=== PATIENT | male | born 1955 | race Caucasian/White ===

== ENCOUNTER 2024-12-21 07:10 | Emergency (ER) | payer MEDICARE, SELFPAY ==
[2024-12-21 07:11] VITALS: BP 144/73; PULSE 98; RESP 16; TEMP 36.8; O2SAT 95; BMI 24.0
--- NOTE | 2024-12-21 07:28 | RAD_ITS ---
PROCEDURE: CHEST PA AND LATERAL 12/21/2024 REASON FOR EXAM: CHEST PAIN TECHNIQUE: CHEST PA AND LATERAL COMPARISON: None FINDINGS: Heart size and mediastinal configuration are within normal limits. Lung volumes are increased. There is no focal infiltrate or consolidation. There is no pneumothorax or effusion. Calcified granulomas are noted. There is no acute bony abnormality. Aortic calcifications are noted. RAD/Chest PA and Lateral IMPRESSION: Increased lung volumes with no acute infiltrate or consolidation. Reading Location: [facility]
--- NOTE | 2024-12-21 07:28 | EKG12_ITS ---
Test Reason : CP Blood Pressure : */* mmHG Vent. Rate : 88 BPM Atrial Rate : 88 BPM P-R Int : 118 ms QRS Dur : 94 ms QT Int : 376 ms P-R-T Axes : 75 77 65 degrees QTcB Int : 454 ms Normal sinus rhythm Normal ECG Confirmed by SAUNDRA PEDRAZA, JESSIE ([id number]), research editor GIAN LANGFORD ([id number]) on 12/25/2024 9:02:57 AM Referred By: Confirmed By: JESSIE ARGUELLO MD
--- NOTE | 2024-12-21 07:49 | ED.VIS.CHEST ---
HPI History of Present Illness Chief Complaint: Chest Pain Informant: patient Narrative Narrative: Patient is a 69-year-old male with history of lymphoma and COPD presenting with chest pain. Patient states for the past week or 2 he has been having episodes pain in his left back that radiates down to his left arm as well as chest pain. States was particularly bad last night. He states he noticed it when he went to bed around 9:30 PM. He went to sleep and then woke up at 11:30 PM with pain. Had a hard time sleeping because of the symptoms. States early in the morning he developed pain in his chest. He ate breakfast however and then had symptoms all subsided. His friend however told him if it happened again he should come to the ER which is why he is presenting today. He notes the symptoms only seem to happen at night. He states he has pain in his back that radiates down to his bilateral elbows but seems to be worse on the left. Denies any associated palpitations, dizziness, lightheadedness, nausea or vomiting. Does not feel short of breath. States sometimes his right leg gets swollen that has been happening ever since he had lymphoma. Denies any aggravating or alleviating factors. States movements do not change it. Notes that a couple weeks ago he had red swelling of his left axilla that his doctor thought was maybe a bug bite needed hydrocortisone cream. He is not sure if this is related. Denies any known cardiac history. Denies any history of DVT or PE. No other complaints or concerns reported at this time. [facility] Medical History Lymphoma COPD (chronic obstructive pulmonary disease) Home Medications ?Medication ?Instructions ?Recorded ?Last Taken ?Type prednisone 20 mg tablet 40 mg (2 x 20 mg) PO DAILY #10 tabs 12/21/24 Unknown Rx Allergy/AdvReac Type Severity Reaction Status Date / Time No Known Allergies Allergy Verified 12/21/24 07:11 Social History Smoking Status: Never smoker ROS ROS ED Constitutional Constitutional ED: Denies chills or fever(s) Cardiovascular Cardiovascular: Reports as per HPI and chest pain Respiratory/Chest Respiratory/Chest: Denies cough or dyspnea Gastrointestinal Gastrointestinal: Denies abdominal pain, nausea or vomiting Musculoskeletal Musculoskeletal: Reports back pain; Denies arthralgias Integumentary Denies rash Neurologic Neurologic: Denies paresthesias or weakness Psychiatric Psychiatric: Denies anxiety Hematologic/Lymphatic Hematologic/Lymphatic: Denies easy bleeding or easy bruising EXAM Physical Exam Const Vital Signs: 12/21/24 07:11 12/21/24 07:28 12/21/24 07:31 Temperature 98.2 F Temperature Source Oral Pulse Rate 98 Respiratory Rate 16 Respiratory Pattern Tachypnea Blood Pressure 144/73 H Blood Pressure Mean 96 Pulse Ox 95 Oxygen Delivery Method Room Air Room Air 12/21/24 07:51 12/21/24 08:11 12/21/24 09:00 Temperature Temperature Source Pulse Rate 90 76 82 Respiratory Rate 20 H 18 19 H Respiratory Pattern Normal Blood Pressure 134/79 H 133/90 H Blood Pressure Mean 97 104 Pulse Ox 96 98 Oxygen Delivery Method Room Air Room Air 12/21/24 10:00 12/21/24 10:46 Temperature 98.3 F Temperature Source Pulse Rate 77 79 Respiratory Rate 23 H 18 Respiratory Pattern Blood Pressure 138/87 H 139/91 H Blood Pressure Mean 104 107 Pulse Ox 98 98 Oxygen Delivery Method Room Air Positive well nourished and well developed General Appearance ED: well developed and NAD HEENT Reports moist mucous membranes Eyes PERRL Neck supple and no JVD Chest Wall inspection of chest normal and palpation of chest normal Resp normal respiratory effort Resp Narrative: Coarse breath sounds with scattered rhonchi present. Auscultation: diminished lung sounds right lower Cardio regular rate, regular rhythm and no murmurs Peripheral Pulses: pulses 2+ throughout GI normal to inspection, nondistended, normoactive bowel sounds, soft to palpation and non-tender Back/Spine no CVA tenderness Extremity normal to inspection Extremity Narrative: 2+ radial and DP pulses. Normal range of motion of the shoulders with no reproducible pain. General Extremety ED: Negative for edema General Extremity: Negative for edema Neuro oriented x3 Sensorium / Orientation: awake and alert Motor Exam: Negative for general weakness Psych mental status grossly normal Skin no rashes or lesions noted and no wounds Heart Score History: Slightly/Non-Suspicious ECG: Normal Age: >/= 65 years Risk Factors: 1 or 2 Risk Factors Score: 3 MDM MDM MDM Narrative Medical decision making narrative: Patient evaluated for episodes of nighttime chest and back pain that radiates to his arms. He is currently asymptomatic. Vital signs largely normal. Physical exam only remarkable for rhonchorous breath sounds. He is otherwise is quite well-appearing. Differential includes pneumonia, pleural effusion, ACS, pericardial effusion, myocarditis (lower suspicion given his symptoms are only at night and he has a normal EKG), muscle skeletal pain or possible thoracic radiculopathy. Patient is given a DuoNeb for rhonchorous breath sounds in the emergency room. Given aspirin. Will obtain cardiac workup including troponins, chest x-ray and D-dimer. Workup largely normal. Chest x-ray viewed by myself of radiology does not show an acute process. Patient does not feel significant difference with the DuoNeb treatment however his lung sounds are significantly improved. He does tell me that he was on steroids about 2 weeks ago. Will put him back on a course of prednisone. As he does not have fever, chest x-ray does not show findings consistent with pneumonia and he does not report significant change in his sputum production I do not think he needs antibiotics at this time. Patient encouraged to follow-up outpatient with primary care doctor for further evaluation of this pain at this point I have a lower suspicion for cardiac etiology and think it safe for him to be discharged home. Suspect it is more likely to be either pulmonary or muscle skeletal. Lab Data Labs: Laboratory Results - last 24 hr 12/21/24 12/21/24 07:50 09:48 WBC 13.6 H RBC 4.07 L Hgb 12.9 L Hct 38.0 L MCV 93.4 MCH 31.7 MCHC 33.9 RDW Std Deviation 49.5 H RDW Coeff of [place] 14.4 Plt Count 310 MPV 9.2 Immature Gran % (Auto) 0.400 Neut % (Auto) 88.1 H Lymph % (Auto) 4.6 L [place] % (Auto) 4.4 Eos % (Auto) 2.1 Baso % (Auto) 0.4 Absolute Neuts (auto) 12.0 H Absolute Lymphs (auto) 0.62 L Nucleated RBC % 0 D-Dimer Quant (PE/DVT) 0.32 Sodium 139 Potassium 3.5 Chloride 103 Carbon Dioxide 25.2 Anion Gap 10 BUN 19 Creatinine 0.85 Estim Creat Clear Calc 84.69 Est GFR (MDRD) Non-Af 94 BUN/Creatinine Ratio 22.1 H Glucose 110 H Calcium 8.4 Troponin T High Sens 11 Troponin T Hi Sens 2 Hr 11 Radiography Diagnostic Testing: Clinical Impression(s) from Imaging Studies Chest X-Ray 12/21/24 07:28 IMPRESSION: Increased lung volumes with no acute infiltrate or consolidation. Reading Location: [facility] Rhythm Strip Rhythm Strip: Sinus Rhythm Rate: 88 Ectopy: None EKG Initial EKG: Attestation: I personally reviewed and interpreted this EKG as follows: Interpretation: Sinus Rhythm Comments: Normal sinus rhythm at a rate of 88 bpm Normal axis Normal intervals Normal ST segments Prior EKG tracings: not available for review Prior: No Prior Discharge Plan Triage Chief Complaint: Chest Pain ED Provider: Lisa Abdi Dx/Rx/DC Orders Clinical Impression: Chest pain, Bilateral wheezing, Back pain Instructions: ED Back Pain (Acute or Chronic), ED Chest Pain, Uncertain Cause Prescriptions: New prednisone 20 mg tablet 40 mg PO DAILY Qty: 10 0RF Primary Care Provider: Joey Garcia Referrals: Joey Garcia MD [Primary Care Provider] - Activity Restrictions/Additional Instructions: You may take an antacid at home for indegestion. Your heart workup was largely normal and reassuring today. You did have abnormal lung sounds on your exam. This consistent COPD. Will place on a course of steroids for this. You may take [id number] Tylenol as needed for discomfort as well. Please follow-up with your family doctor for further evaluation of these episodes however at this time I think you are safe to go home. Print Language: Japanese Disposition Disposition: Home, Self Care Discharge Date/Time: 12/21/24 10:53
[2024-12-21 07:51] VITALS: PULSE 90; RESP 20
[2024-12-21 07:57] LABS: Hematocrit 38.0 % (40-54); Hemoglobin 12.9 g/dL (13.0-16.5); Immature Granulocytes Count 0.050 X10^3/uL (0.0-0.0); Mean Corp Hgb Conc 33.9 g/dL (32-36); Mean Corpuscular Volume 93.4 fL (80-94); Mean Platelet Vol. 9.2 fl (6.2-12.0); NRBC Flagged by Analyzer 0 % (0-5); Platelet Count 310 K/mm3 (150-450); RBC Distribution Width CV 14.4 % (11.6-14.6); RBC Distribution Width SD 49.5 fl (35.1-43.9); Red Blood Count 4.07 M/mm3 (4.6-6.2); White Blood Count 13.6 K/mm3 (4.4-11.0)
[2024-12-21 08:11] VITALS: BP 134/79; PULSE 76; RESP 18; O2SAT 96
[2024-12-21 08:43] LABS: Anion Gap 10 (5-15); BUN 19 mg/dL (4-19); BUN/Creat Ratio 22.1 RATIO (10-20); Calcium,Total 8.4 mg/dL (7.6-11.0); Carbon Dioxide 25.2 mmol/L (21.0-32.0); Chloride 103 mmol/L (98-108); Estimated Creatinine Clearance 84.69 ml/min (50-250); Glucose 110 mg/dL (70-99); Potassium 3.5 mmol/L (3.3-5.1); Troponin T High Sensitivity 11 ng/L (<=22)
[2024-12-21 09:00] VITALS: BP 133/90; PULSE 82; RESP 19; O2SAT 98
[2024-12-21 09:41] LABS: D-Dimer Quantitative (DVT/PE) 0.32 FEU/ug/m (0.27-0.49)
[2024-12-21 10:00] VITALS: BP 138/87; PULSE 77; RESP 23; O2SAT 98
[2024-12-21 10:41] LABS: Troponin T High Sens 2 HR 11 ng/L (<=22)
[2024-12-21 10:46] VITALS: BP 139/91; PULSE 79; RESP 18; TEMP 36.8; O2SAT 98
== END 2024-12-21 10:53 | disposition home or self-care (01) ==
PROVIDERS: Emergency Provider Emergency Medicine; PCP Family Medicine; Visit Provider Emergency Medicine
DX: R07.9 Chest pain, unspecified (principal); J44.9 Chronic obstructive pulmonary disease, unspecified; M54.9 Dorsalgia, unspecified; R06.2 Wheezing
CPT/HCPCS: 71046; 80048; 84484; 85025; 85379; 93005; 94640; 99284; A4216